=== PATIENT | male | born 2000 | race Two or more races ===

== ENCOUNTER 2020-05-21 06:36 | Emergency (ER) | payer OTHER ==
[~2020-05-21] VITALS: Ht 167.6 cm; Wt 52.3 kg
[2020-05-21] MEDS ORDERED: SERT50TA12 PO (06:45)
[2020-05-21] MEDS ORDERED: OLAN10TA3 PO (06:45)
[2020-05-21] MEDS ORDERED: ACETAMINOPHEN 500 MG TABLET PO ONE (07:00)
[2020-05-21] MEDS ORDERED: ALBUTEROL SULFATE HFA 90 MCG/PUFF 8 GM INHALER IH ONE (07:45)
[2020-05-21 08:07] VITALS: BP 127/73
== END 2020-05-21 08:38 | disposition home or self-care (01) ==
LOC: EMS 06:39
DX: R06.00 Dyspnea, unspecified (principal); R06.02 Shortness of breath; R07.9 Chest pain, unspecified; F17.210 Nicotine dependence, cigarettes, uncomplicated; Z20.828 Contact with and (suspected) exposure to other viral communicable diseases
CPT/HCPCS: 71045; 94640; 99284; U0003; J3535